=== PATIENT | male | born 1935 | race Caucasian/White ===

== ENCOUNTER 2016-06-30 12:51 | Outpatient (CLI) | payer MEDICARE, OTHER | END 2016-06-30 12:52 | disposition home or self-care (01) | DX: M43.06 Spondylolysis, lumbar region (principal); M51.36 Other intervertebral disc degeneration, lumbar region; M47.816 Spondylosis without myelopathy or radiculopathy, lumbar region; M48.56XS Collapsed vertebra, not elsewhere classified, lumbar region, sequela of fracture ==

== ENCOUNTER 2016-10-15 21:05 | Outpatient (CLI) | payer MEDICARE, OTHER | END 2016-10-15 23:59 | disposition EMS.NT | DX: Z03.89 Encounter for observation for other suspected diseases and conditions ruled out (principal) ==

== ENCOUNTER 2016-10-18 16:02 | Outpatient (CLI) | payer MEDICARE, OTHER | END 2016-10-18 16:03 | disposition EMS.NT | DX: Z03.89 Encounter for observation for other suspected diseases and conditions ruled out (principal); W06.XXXA Fall from bed, initial encounter; Y92.003 Bedroom of unspecified non-institutional (private) residence as the place of occurrence of the external cause ==